=== PATIENT | male | born 1940 | race Caucasian/White ===

== ENCOUNTER → 2017-05-10 | Outpatient (CLI) | payer OTHER, MEDICAID ==
[~2017-05-10] MED LIST: CARVEDILOL6.25 M1 PO; CLOTRIMAZOLE TR10 M1; COL100 PO; CYMBALTA60 M1 PO; DIGOXIN0.25 M1 PO; DIOVAN80 MG PO; FUROSEMIDE80 MG PO; JANUVIA100 M1 PO; LAC PO; LANTUS SOLOS100 U/M1 SQ; LEVAQUIN750 MG PO; METFORMIN HCL1000 MG PO; NORCO1 TA2 PO; PRAVACHOL80 MG PO; PROVENTIL0.09 MG/A1 INH; XARELTO20 M1 PO; [UNRECOGNIZED DRUG - CODE]
== END | disposition home or self-care (01) ==
LOC: RD 09:18
DX: I50.42 Chronic combined systolic (congestive) and diastolic (congestive) heart failure (principal)

== ENCOUNTER 2017-07-10 17:04 | Inpatient (IN) | payer OTHER ==
[~2017-07-10] VITALS: Ht 175.3 cm; Wt 101.2 kg
[2017-07-10 18:57] LABS: CALCIUM 9.1 mg/dL (8.5-10.1); CARBON DIOXIDE 29.5 mmol/L (21-32); CHLORIDE SERUM 100 mmol/L (98-107); CREATININE SERUM 1.1 mg/dL (0.7-1.3); GLUCOSE SERUM 351 mg/dL (74-106); POTASSIUM SERUM 4.1 mmol/L (3.5-5.1); SODIUM SERUM 139 mmol/L (136-145)
[2017-07-10 19:06] LABS: ALBUMIN 3.5 g/dL (3.4-5.0); ALKALINE PHOSPHATASE 64 U/L (46-116); ALT/SGPT 38 U/L (16-63); AST/SGOT 28 U/L (15-37); BILIRUBIN TOTAL 0.5 mg/dL (0.20-1.00); C REACTIVE PROTEIN 0.2 mg/dL (<=0.9); TOTAL PROTEIN, SERUM 7.4 g/dL (6.4-8.2)
[2017-07-10 19:07] LABS: BASOPHIL % 0.3 % (0-2)
[2017-07-10 19:15] LABS: FREE T4 0.86 ng/dL (0.76-1.46)
[2017-07-10 19:16] LABS: PLATELET COUNT 91 x10^3mcL (130-400); RED CELL DISTRIBUTION WIDTH 15.2 % (11.5-14.5)
[2017-07-10 19:27] LABS: T3 TOTAL 0.84 ng/mL
[2017-07-10 19:49] LABS: microscopic required? YES; urine erythrocyte TRACE (NEGATIVE)
[2017-07-10 20:11] LABS: ERYTHROCYTE SED RATE 20 mm/hr (0-20)
[2017-07-10 20:37] LABS: CK-MB 3.7 ng/mL (0-3.6)
[2017-07-10] MEDS ORDERED: JANUVIA100 M1 PO (21:35)
[2017-07-10] MEDS ORDERED: NEU300 PO (21:36)
[2017-07-10] MEDS ORDERED: LASIX40 MG PO (21:36)
[2017-07-10] MEDS ORDERED: CARVEDILOL12.5 M1 PO (21:36)
[2017-07-10 21:39] LABS: PHOSPHOROUS 3.8 mg/dL (2.5-4.9)
[2017-07-10 21:40] LABS: CHOLESTEROL/HDL RATIO 2.3
[2017-07-10 21:57] VITALS: BP 144/85
[2017-07-10 21:59] VITALS: Ht 175.3 cm; Wt 101.2 kg
[2017-07-10] MEDS ORDERED: LANTUS SOLOS100 U/M1 SQ (22:57)
[2017-07-10] MEDS ORDERED: HUMALOG100 U/ML SC (22:58)
[2017-07-11 05:12] LABS: BASOPHIL % 0.3 % (0-2)
[2017-07-11 05:23] VITALS: BP 137/57
[2017-07-11 05:28] LABS: PLATELET COUNT 86 x10^3mcL (130-400); RED CELL DISTRIBUTION WIDTH 15.3 % (11.5-14.5)
[2017-07-11 05:35] LABS: CALCIUM 8.9 mg/dL (8.5-10.1); CARBON DIOXIDE 31.6 mmol/L (21-32); CHLORIDE SERUM 103 mmol/L (98-107); CREATININE SERUM 1.1 mg/dL (0.7-1.3); GLUCOSE SERUM 194 mg/dL (74-106); MAGNESIUM 1.9 mg/dL (1.8-2.4); POTASSIUM SERUM 3.7 mmol/L (3.5-5.1); SODIUM SERUM 143 mmol/L (136-145)
[2017-07-11 10:04] VITALS: BP 145/73
[2017-07-11 14:48] VITALS: BP 148/79
[2017-07-11 18:00] VITALS: BP 145/75
[2017-07-11 20:35] VITALS: BP 154/78
[2017-07-12 05:17] VITALS: BP 146/80
[2017-07-12 06:49] LABS: BASOPHIL % 0.5 % (0-2)
[2017-07-12 06:57] LABS: PLATELET COUNT 80 x10^3mcL (130-400); RED CELL DISTRIBUTION WIDTH 15.3 % (11.5-14.5)
[2017-07-12 07:04] LABS: CALCIUM 8.6 mg/dL (8.5-10.1); CARBON DIOXIDE 29.3 mmol/L (21-32); CHLORIDE SERUM 103 mmol/L (98-107); GLUCOSE SERUM 134 mg/dL (74-106); PHOSPHOROUS 3.9 mg/dL (2.5-4.9); POTASSIUM SERUM 3.6 mmol/L (3.5-5.1); SODIUM SERUM 141 mmol/L (136-145)
[2017-07-12 09:26] VITALS: BP 155/60
[2017-07-12 13:46] VITALS: BP 127/70
[2017-07-12 17:34] VITALS: BP 165/71
[2017-07-12 21:19] VITALS: BP 157/80
[2017-07-13 05:51] VITALS: BP 142/75
[2017-07-13 09:05] VITALS: BP 142/75
[2017-07-13] MEDS ORDERED: ECO81 PO (09:13)
[2017-07-13 09:48] VITALS: BP 142/78
== END 2017-07-13 11:52 | disposition home or self-care (01) | DRG 291 ==
LOC: ED 17:04 → DU 19:36 → MU 07-13 09:33
PROVIDERS: Family Medicine; Specialist
DX: I11.0 Hypertensive heart disease with heart failure (principal); J96.00 Acute respiratory failure, unspecified whether with hypoxia or hypercapnia; I50.43 Acute on chronic combined systolic (congestive) and diastolic (congestive) heart failure; I42.2 Other hypertrophic cardiomyopathy; I35.0 Nonrheumatic aortic (valve) stenosis; I48.91 Unspecified atrial fibrillation; E11.65 Type 2 diabetes mellitus with hyperglycemia; R31.29 Other microscopic hematuria; D69.6 Thrombocytopenia, unspecified; Z68.35 Body mass index [BMI] 35.0-35.9, adult; Z79.4 Long term (current) use of insulin; Z79.891 Long term (current) use of opiate analgesic; Z79.01 Long term (current) use of anticoagulants
CPT/HCPCS: 82962; 83880; 84439; J1644; J1815; J1817; J1940; J7030; J7620; Q0092; Q9967

== ENCOUNTER 2017-08-04 09:31 | Inpatient (IN) | payer OTHER ==
[~2017-08-04] VITALS: Ht 175.3 cm; Wt 104.0 kg
[~2017-08-04 09:31] MED LIST changes: +CARVEDILOL12.5 M1 PO; +ECO81 PO; +HUMALOG100 U/ML SC; +LASIX40 MG PO; +NEU300 PO
[2017-08-04 10:34] LABS: CALCIUM 9.1 mg/dL (8.5-10.1); CARBON DIOXIDE 32.1 mmol/L (21-32); CHLORIDE SERUM 108 mmol/L (98-107); GLUCOSE SERUM 158 mg/dL (74-106); POTASSIUM SERUM 3.9 mmol/L (3.5-5.1); SODIUM SERUM 148 mmol/L (136-145)
[2017-08-04 10:36] LABS: BASOPHIL % 0.3 % (0-2)
[2017-08-04 10:39] LABS: ALKALINE PHOSPHATASE 50 U/L (46-116); ALT/SGPT 29 U/L (16-63); AST/SGOT 21 U/L (15-37); BILIRUBIN TOTAL 0.58 mg/dL (0.20-1.00); TOTAL PROTEIN, SERUM 6.6 g/dL (6.4-8.2)
[2017-08-04 10:40] LABS: ALBUMIN 3.2 g/dL (3.4-5.0)
[2017-08-04 10:43] LABS: PLATELET COUNT 74 x10^3mcL (130-400); RED CELL DISTRIBUTION WIDTH 16.1 % (11.5-14.5)
[2017-08-04 13:53] LABS: T3 TOTAL 1.01 ng/mL
[2017-08-04 14:03] LABS: MAGNESIUM 1.9 mg/dL (1.8-2.4); PHOSPHOROUS 3.3 mg/dL (2.5-4.9)
[2017-08-04 14:14] LABS: FREE T4 0.92 ng/dL (0.76-1.46); FREE THYROXINE INDEX 2.5 ug/dL (1.4-4.5)
[2017-08-04 14:40] VITALS: BP 157/73
[2017-08-04 15:20] VITALS: Ht 175.3 cm; Wt 104.0 kg
[2017-08-04 16:53] VITALS: BP 147/56
[2017-08-04 19:35] LABS: UA SPECIFIC GRAVITY 1.015 (1.005-1.035); microscopic required? YES; urine erythrocyte TRACE (NEGATIVE)
[2017-08-04 19:48] LABS: AMPHETAMINE QUAL UR NONE DETECTED (NEG <=1000)
[2017-08-04 21:09] VITALS: BP 167/69
[2017-08-04] MEDS ORDERED: LEVEMIR100 U/M1 SC (21:11)
[2017-08-05 05:40] VITALS: BP 126/63
[2017-08-05 08:49] VITALS: BP 113/77
[2017-08-05 13:45] VITALS: BP 142/65
[2017-08-05 17:40] VITALS: BP 153/66
[2017-08-05 21:26] VITALS: BP 156/79
[2017-08-06 05:55] VITALS: BP 145/77
[2017-08-06 06:11] LABS: BASOPHIL % 0.3 % (0-2)
[2017-08-06 06:14] LABS: PLATELET COUNT 55 x10^3mcL (130-400); RED CELL DISTRIBUTION WIDTH 15.9 % (11.5-14.5)
[2017-08-06 06:43] LABS: CALCIUM 9.1 mg/dL (8.5-10.1); CARBON DIOXIDE 32.7 mmol/L (21-32); CHLORIDE SERUM 103 mmol/L (98-107); GLUCOSE SERUM 196 mg/dL (74-106); POTASSIUM SERUM 3.9 mmol/L (3.5-5.1); SODIUM SERUM 140 mmol/L (136-145)
[2017-08-06 08:32] VITALS: BP 157/79
[2017-08-06 09:45] VITALS: BP 134/68
[2017-08-06 13:45] VITALS: BP 137/72
[2017-08-06 17:25] VITALS: BP 121/53
[2017-08-06 20:49] VITALS: BP 142/71
[2017-08-07] VITALS (9 sets, daily range): BP systolic 95–152; BP diastolic 54–75
[2017-08-07 06:02] LABS: BASOPHIL % 0.2 % (0-2)
[2017-08-07 06:23] LABS: CARBON DIOXIDE 34.7 mmol/L (21-32); CHLORIDE SERUM 106 mmol/L (98-107); CREATININE SERUM 1.1 mg/dL (0.7-1.3); GLUCOSE SERUM 72 mg/dL (74-106); PHOSPHOROUS 3.8 mg/dL (2.5-4.9); POTASSIUM SERUM 4.4 mmol/L (3.5-5.1); SODIUM SERUM 147 mmol/L (136-145)
[2017-08-07 08:13] LABS: PLATELET COUNT 39 x10^3mcL (130-400)
[2017-08-08 06:05] VITALS: BP 153/78
[2017-08-08 06:20] LABS: BASOPHIL % 0.2 % (0-2)
[2017-08-08 06:22] LABS: CALCIUM 8.7 mg/dL (8.5-10.1); CARBON DIOXIDE 34.3 mmol/L (21-32); CHLORIDE SERUM 105 mmol/L (98-107); GLUCOSE SERUM 154 mg/dL (74-106); MAGNESIUM 1.9 mg/dL (1.8-2.4); PHOSPHOROUS 3.2 mg/dL (2.5-4.9); POTASSIUM SERUM 4.6 mmol/L (3.5-5.1); SODIUM SERUM 146 mmol/L (136-145)
[2017-08-08 06:53] LABS: PLATELET COUNT 43 x10^3mcL (130-400)
[2017-08-08 09:09] VITALS: BP 98/65
[2017-08-08 13:09] VITALS: BP 128/77
[2017-08-08 17:41] VITALS: BP 163/75
[2017-08-08 21:45] VITALS: BP 149/72
[2017-08-09 05:32] VITALS: BP 147/74
[2017-08-09 06:12] LABS: BASOPHIL % 0.4 % (0-2)
[2017-08-09 06:28] LABS: CALCIUM 8.8 mg/dL (8.5-10.1); CARBON DIOXIDE 37.7 mmol/L (21-32); CHLORIDE SERUM 101 mmol/L (98-107); CREATININE SERUM 0.9 mg/dL (0.7-1.3); GLUCOSE SERUM 65 mg/dL (74-106); PHOSPHOROUS 3.4 mg/dL (2.5-4.9); POTASSIUM SERUM 4.2 mmol/L (3.5-5.1); SODIUM SERUM 144 mmol/L (136-145)
[2017-08-09 06:40] LABS: PLATELET COUNT 56 x10^3mcL (130-400); RED CELL DISTRIBUTION WIDTH 15.4 % (11.5-14.5)
[2017-08-09 09:06] VITALS: BP 110/85
[2017-08-09 13:02] VITALS: BP 110/85
[2017-08-09 17:26] VITALS: BP 144/76
[2017-08-09 21:10] VITALS: BP 161/80
[2017-08-10 01:10] VITALS: BP 121/66
[2017-08-10 06:05] LABS: BASOPHIL % 0.2 % (0-2)
[2017-08-10 06:21] VITALS: BP 147/61
[2017-08-10 06:41] LABS: CARBON DIOXIDE 39.3 mmol/L (21-32); CHLORIDE SERUM 101 mmol/L (98-107); CREATININE SERUM 0.9 mg/dL (0.7-1.3); GLUCOSE SERUM 76 mg/dL (74-106); PHOSPHOROUS 4.1 mg/dL (2.5-4.9); POTASSIUM SERUM 4.9 mmol/L (3.5-5.1); SODIUM SERUM 145 mmol/L (136-145)
[2017-08-10 07:01] LABS: PLATELET COUNT 85 x10^3mcL (130-400); RED CELL DISTRIBUTION WIDTH 15.5 % (11.5-14.5)
[2017-08-10 08:44] VITALS: BP 142/69
[2017-08-10 13:55] VITALS: BP 133/94
[2017-08-10 16:19] VITALS: BP 146/64
[2017-08-10] MEDS ORDERED: LANTUS SOLOS100 U/M1 SQ (18:17)
[2017-08-10 18:19] VITALS: BP 146/64
== END 2017-08-10 18:42 | disposition home or self-care (01) | DRG 291 ==
LOC: ED 09:31 → DU 12:12
PROVIDERS: Emergency Medicine; Family Medicine Sports Medicine; Student in an Organized Health Care Education/Training Program
PROC: 30233R1 Transfusion of Nonautologous Platelets into Peripheral Vein, Percutaneous Approach (ICD-10-PCS; principal; 2017-08-07)
DX: I11.0 Hypertensive heart disease with heart failure (principal); N17.0 Acute kidney failure with tubular necrosis; J96.01 Acute respiratory failure with hypoxia; I24.9 Acute ischemic heart disease, unspecified; J44.1 Chronic obstructive pulmonary disease with (acute) exacerbation; J44.0 Chronic obstructive pulmonary disease with (acute) lower respiratory infection; I50.43 Acute on chronic combined systolic (congestive) and diastolic (congestive) heart failure; I42.9 Cardiomyopathy, unspecified; E11.40 Type 2 diabetes mellitus with diabetic neuropathy, unspecified; J20.9 Acute bronchitis, unspecified; E66.9 Obesity, unspecified; I25.10 Atherosclerotic heart disease of native coronary artery without angina pectoris; I48.91 Unspecified atrial fibrillation; E11.65 Type 2 diabetes mellitus with hyperglycemia; Z90.89 Acquired absence of other organs; Z79.84 Long term (current) use of oral hypoglycemic drugs; Z79.82 Long term (current) use of aspirin; Z79.899 Other long term (current) drug therapy
CPT/HCPCS: 82962; 83880; 84439; 86022; 94150; C1887; C1894; J1644; J1815; J1940; J2001; J3490; J7030; J7040; J7620; P9035; Q0092; Q0163; Q9967

== ENCOUNTER → 2017-11-05 | Outpatient (CLI) | payer OTHER ==
[~2017-11-05] MED LIST changes: +LEVEMIR100 U/M1 SC
== END | disposition home or self-care (01) ==
LOC: RD 10:22
DX: M54.5 Low back pain (principal)